=== PATIENT | male | born 1975 | race Caucasian/White ===

== ENCOUNTER → 2017-09-12 | Outpatient (CLI) | payer OTHER ==
--- NOTE | 2017-09-12 13:07 | DIAGNOSTIC IMAGING REPORT ---
ABDOMEN ULTRASOUND FOR HERNIA CLINICAL HISTORY: LEFT GROIN PAIN,R/O HERNIA COMPARISON STUDY: None. FINDINGS: Real-time sonographic imaging of the left inguinal region was performed. There is a small reducible fat-containing left inguinal hernia. No fluid collections or lymphadenopathy within the left groin. IMPRESSION: Small fat-containing reducible left inguinal hernia. Electronically signed by: Gerber Corley M.D. 09/12/2017 1:06 PM Dictated Date/Time: 09/12/2017 1:04 PM
== END | disposition home or self-care (01) ==
LOC: C.ULTRBC 12:28
PROVIDERS: ATTEND Physician Assistant
DX: R10.32 Left lower quadrant pain (principal); K40.90 Unilateral inguinal hernia, without obstruction or gangrene, not specified as recurrent

== ENCOUNTER → 2017-09-26 | Day surgery (SDC) | payer OTHER ==
[2017-09-22 15:18] VITALS: Ht 193 cm; Wt 111.8 kg
[~2017-09-26] VITALS: Ht 193 cm; Wt 111.8 kg
[~2017-09-26] MED LIST: ATROPINE SULFATE 0.1 MG/ML 5ML SYR IV PRN; BUPIVACAINE/EPINEPHRINE 0.5% MPF 1:200,000 30 ML VIAL ONE; CEFAZOLIN SOD 1 GM VIAL ONE; CETI10TA84 PO; CLINDAMYCIN PHOS 150 MG/ML 2 ML VIAL IV SCH; DEXAMETHASONE SOD INJ 4 MG/ML VIAL IV PRN; EpHEDrine SULFATE INJ 50 MG/ML AMP IV PRN; FENTANYL CITRATE INJ 50 MCG/1 ML 2 ML VIAL IV PRN; FENTANYL CITRATE INJ 50 MCG/1 ML 2 ML VIAL ONE; HYDR-5688 PO; KETOROLAC TROMETHAMINE 30 MG/ML VIAL IV. PRN; LABETALOL HCL IV 5 MG/ML 20ML IV PRN; LACTATED RINGER'S 1000ML 1,000 ML IV SCH; LIDOCAINE HCL 2% 2 ML VIAL (20MG/ML) ONE; METOCLOPRAMIDE HCL INJ 5 MG/ML 2 ML VIAL IV PRN; MIDAZOLAM HCL 1 MG/ML 2ML VIAL ONE; MULT-506 PO; MoRPHine SULFATE 10 MG/ML CARP/VIAL IV PRN; ONDANSETRON INJ 2 MG/ML 2 ML VIAL IV PRN; ONDANSETRON INJ 2 MG/ML 2 ML VIAL ONE; PHENYLEPHRINE 100MCG/ML 5ML SYR IV PRN; PROPOFOL IV EMULSION 10 MG/ML 20 ML VIAL IV ONE
--- NOTE | 2017-09-26 07:51 | History & Physical Bridge Note ---
H&P Re-Evaluation Bridge Note: I have examined the patient, reviewed the History & Physical and in the interval since the performance of the History & Physical I have noted the following changes of clinical significance: No changes noted
--- NOTE | 2017-09-26 08:37 | Discharge Instructions ---
Discharge Instructions Date of Service Sep 26, 2017. Visit Reason for Visit: Left Inguinal Hernia Discharge Discharge Diagnosis / Problem: inguinal hernia repair Discharge Goals Goal(s): Decrease discomfort Activity Recommendations Activity Limitations: as noted below Lifting Limitations: no more than 10 pounds Shower/Bathe: no limitations Driving or Machine Use: resume 3 days after discharge Anesthesia . Post Anesthesia Instructions: If you have had General Anesthesia or IV Sedation: * Do not drive today. * Resume driving when surgeon permits. * Do not make important decisions or sign legal documents today. * Call surgeon for: 1. Temperature elevations greater than 101 degrees F. 2. Uncontrollable pain. 3. Excessive bleeding. 4. Persistent nausea and vomiting. 5. Medication intolerance (nausea, vomiting or rash). * For nausea and vomiting use only clear liquids such as: tea, soda, bouillon until nausea subsides, then gradually increase diet as tolerated. * If you have any concerns or questions, call your surgeon's office. If physician is unavailable and it is an emergency, call 911 or go to the nearest emergency room. . Instructions / Follow-Up Instructions / Follow-Up Dr. Oconnor in 1-2 weeks as planned, call [phone] if you have any questions You can take ibuprofen 800 mg 3 times daily for pain Ice left groin off and on every 20 minutes until bedtime Diet Recommendations Recommended Home Diet: no limitations Pending Studies Studies pending at discharge: no Medical Emergencies . Who to Call and When: Medical Emergencies: If at any time you feel your situation is an emergency, please call 911 immediately. . Non-Emergent Contact Non-Emergency issues call your: Surgeon Call Non-Emergent contact if: you have a fever, temperature is above 101.5, your pain is not controlled, wound has increased redness . . "Provider Documentation" section prepared by Nakul Betancourt. .
--- NOTE | 2017-09-26 09:43 | [facility] Post Operative Brief Note ---
Immediate Operative Summary Operative Date Sep 26, 2017. Pre-Operative Diagnosis Left Inguinal Hernia Post-Operative Diagnosis Same as pre-op ( direct and indirect hernias) Procedure(s) Performed Left Inguinal Hernia Open Repair With Mesh Surgeon Packing Clerk Surgeon(s) Eliu DUGGAN Estimated Blood Loss 5ML Findings Consistent with Post-Op Diagnosis Specimens None Anesthesia Type General Complication(s) none
--- NOTE | 2017-09-26 09:57 | [facility] Operative Report ---
Operative Report Operative Date Sep 26, 2017. Pre-Operative Diagnosis Left Inguinal Hernia Post-Operative Diagnosis Same as pre-op ( direct and indirect hernias) Procedure(s) Performed Left Inguinal Hernia Open Repair With Mesh Surgeon Gore Seamer Surgeon(s) Eliu DUGGAN Estimated Blood Loss 5ML Specimens None Anesthesia Type General Complication(s) none Description of Procedure After informed consent was obtained the patient was taken the operating room and placed in supine position. After successful placement of the laryngeal mask airway the left groin was shaved and sterilely prepped and draped in usual fashion. An inguinal incision was made with a 15 blade scalpel and carried down through the soft tissue using electrocautery. The external oblique aponeurosis was skeletonized. A fresh blade was used to make an incision and then Metzenbaum scissors were used to extend this distally through the external ring as well as for several centimeters proximally. Once in the inguinal canal I used blunt finger dissection to free up the cord and cord structures. I was able to gently tease the cord off of the pubic bone and placed a Shelbie drain around it. After elevating the cord structures we immediately noted a moderate sized direct hernia. We inspected the cord and cord structures using blunt dissection with small amounts of electrocautery. Eventually we were able to identify a small hernia sac. We dissected this back to its neck and then dunked it back into the abdominal cavity. It was able to stay self reduced. We also noted a small cord lipoma which we gently dissected and excised using electrocautery and discarded. We then thoroughly irrigated the wound. I used a polypropylene henriquez-holed mesh as an onlay. It was secured distally to Rock' s ligament, laterally along the shelving portion of Poupart's ligament and medially along the midline musculature. 0 Ethibond was used for the suturing. The "arms" of the mesh were wrapped around behind the cord and cord structures and again secured to underlying muscle. The mesh laid nice and flat and tension -free and did not impinge on the cord structures themselves. We thoroughly irrigated the wound. There was adequate hemostasis. I injected Marcaine around the edges of the mesh for postoperative analgesia. We then closed the external oblique aponeurosis with 2-0 Vicryl in a running fashion. Soft tissue was irrigated and closed in multiple layers using 3-0 Vicryl for the deep layers and 4-0 Monocryl for the skin. Some additional Marcaine was injected around the skin incision. We then used a skin glue as a dressing. The patient was awaken extubated and transferred to recovery in stable condition. My physician's therapy administrative assistant was present throughout the entire procedure. he helped prep the patient. Helped with retraction throughout the case to aid my dissection, assisted with wound closure as well as dressing placement. I attest to the content of the Intraoperative Record and any orders documented therein. Any exceptions are noted below. I attest to the content of the Intraoperative Record and any orders documented therein. Any exceptions are noted below.
[2017-09-26 10:40] VITALS: TEMP 36.6
[2017-09-26 11:05] VITALS: BP 139/77; PULSE 73; O2SAT 100
--- NOTE | 2017-09-26 11:08 | Anesthesia Progress Nt - [facility] ---
Anesthesia Post Op Note Date & Time Sep 26, 2017 at 11:08 Vital Signs Pain Intensity: 0 Vital Signs Past 12 Hours Date Time Temp Pulse Resp B/P (MAP) Pulse Ox O2 Delivery O2 Flow Rate FiO2 09/26/17 11:05 73 16 139/77 (97) 100 Room Air 09/26/17 10:40 36.6 78 12 146/90 (108) 98 Room Air 09/26/17 10:37 70 13 96 09/26/17 10:37 72 13 09/26/17 10:36 140/84 09/26/17 10:35 36.9 97 Room Air 09/26/17 10:33 79 14 09/26/17 10:33 83 14 96 09/26/17 10:31 143/88 09/26/17 10:28 76 12 09/26/17 10:28 76 12 97 09/26/17 10:27 72 13 09/26/17 10:27 71 13 98 09/26/17 10:26 136/87 09/26/17 10:22 75 10 100 09/26/17 10:22 75 10 09/26/17 10:21 145/84 09/26/17 10:17 80 13 98 09/26/17 10:17 80 13 09/26/17 10:16 142/88 09/26/17 10:12 80 19 09/26/17 10:12 80 19 99 09/26/17 10:11 151/81 09/26/17 10:07 96 18 09/26/17 10:07 95 18 98 09/26/17 10:06 87 31 09/26/17 10:06 85 31 148/91 99 09/26/17 10:02 154/94 09/26/17 10:01 36.9 93 16 154/94 98 Mask 6 09/26/17 07:16 37.1 79 16 119/76 (90) 94 Room Air Notes Mental Status: alert / awake / arousable, participated in evaluation Pt Amnestic to Procedure: Yes Nausea / Vomiting: adequately controlled Pain: adequately controlled Airway Patency, RR, SpO2: stable & adequate BP & HR: stable & adequate Hydration State: stable & adequate Anesthetic Complications: no major complications apparent
== END | disposition home or self-care (01) ==
LOC: X.SURG 06:51
PROVIDERS: ATTEND Surgery
DX: K40.90 Unilateral inguinal hernia, without obstruction or gangrene, not specified as recurrent (principal); J45.909 Unspecified asthma, uncomplicated; Z90.89 Acquired absence of other organs; Z98.890 Other specified postprocedural states; Z82.49 Family history of ischemic heart disease and other diseases of the circulatory system; Z80.8 Family history of malignant neoplasm of other organs or systems; Z88.1 Allergy status to other antibiotic agents